=== PATIENT | female | born 1985 | race Hispanic/Latino ===

== ENCOUNTER 2021-04-05 10:19 | Outpatient (CLI) | payer BC | END 2021-04-05 10:20 | disposition home or self-care (01) | LOC: BICULT 10:19 | PROVIDERS: ATTEND Family Medicine | DX: R74.01 Elevation of levels of liver transaminase levels (principal); R11.0 Nausea; R93.2 Abnormal findings on diagnostic imaging of liver and biliary tract | CPT/HCPCS: 76705 ==

== ENCOUNTER 2022-04-20 21:24 | Emergency (ER) | payer BC ==
[2022-04-20] MEDS ORDERED: predniSONE 20 MG TAB ONE (23:15)
== END 2022-04-21 01:10 | disposition home or self-care (01) ==
LOC: ERS 21:24
DX: K14.8 Other diseases of tongue (principal)
CPT/HCPCS: 99283; J7512